=== PATIENT | male | born 1995 ===

== ENCOUNTER → 2019-05-20 | Outpatient (CLI) | payer SELFPAY ==
[2019-05-20 19:58] LABS: CHLAM PCR NOT DETECTED (NOT DETECT)
== END ==
LOC: LAB 18:01
PROVIDERS: ATTEND Nurse Practitioner Acute Care
DX: R30.0 Dysuria (principal); R21 Rash and other nonspecific skin eruption
CPT/HCPCS: 36415; 86695; 86696; 87491; 87591